=== PATIENT | male | born 1935 | race Caucasian/White ===

== ENCOUNTER → 2019-03-16 | Outpatient (CLI) | payer MEDICARE, BC ==
[~2019-03-16] MED LIST: ALBU8.5H5 INH; AMLO-150 PO; ASPI-496 PO; CARV6.252 PO; CARVEDILOL; DICL75TA3 PO; FISH OIL PO; GEMF600T8 PO; LEVA15HF4 INH; METF500T27 PO; MOME13HF3 INH; REGADENOSON 0.4 MG/5 ML SYRINGE ONE; ROSU20TA2 PO; SIMV20TA3 PO; TIOT18CA INH
== END | disposition home or self-care (01) ==
LOC: CFH 08:29
PROVIDERS: ATTEND Internal Medicine Cardiovascular Disease
DX: I21.9 Acute myocardial infarction, unspecified (principal); I10 Essential (primary) hypertension; I25.10 Atherosclerotic heart disease of native coronary artery without angina pectoris
CPT/HCPCS: 78452; 93017; A9502; J2785